=== PATIENT | male | born 1990 | race Caucasian/White ===

== ENCOUNTER 2019-02-28 10:51 | Day surgery (SDC) | payer BC ==
[2019-02-27 18:47] VITALS: BMI 21.8
[~2019-02-28] VITALS: Ht 172.7 cm; Wt 66.9 kg
[2019-02-28] VITALS (9 sets, daily range): BP systolic 93–127; BP diastolic 48–83; PULSE 60–77; RESP 16–26; Ht 172.7 cm; Wt 66.9 kg
[~2019-02-28 10:51] MED LIST: CEFAZOLIN 2 GM/50 ML (PMX) 50 ML IVPB SCH; SOD CHLORIDE 0.9% 1,000 ML IV ONE
[2019-02-28] MEDS ORDERED: ACETAMINOPHEN 500 MG TAB PO ONE (11:00)
[2019-02-28] MEDS ORDERED: PROP10TA6 PO (11:23)
[2019-02-28] MEDS ORDERED: CITA20TA11 PO (11:23)
[2019-02-28] MEDS ORDERED: PROPOFOL 40 ML ONE (12:12)
[2019-02-28] MEDS ORDERED: MIDAZOLAM 1 MG/ML 2 ML INJ ONE (12:12)
[2019-02-28] MEDS ORDERED: FENTAnyl 50 MCG/ML VIAL ONE (12:12)
[2019-02-28] MEDS ORDERED: FAMOTIDINE 20 MG INJ ONE (12:13)
[2019-02-28] MEDS ORDERED: ONDANSETRON 4 MG INJ ONE (12:16)
[2019-02-28] MEDS ORDERED: ROCURONIUM 50 MG INJ ONE (12:17)
--- NOTE | 2019-02-28 13:01 | PREAC ---
Date/Time of Note Date/Time of Note DATE: 02/28/19 TIME: 12:59 Anesthesia Eval and Record Evaluation Time Pre-Procedure Interview DATE: 02/28/19 TIME: 12:59 Age 29 Sex male NPO: 8 hrs Preoperative diagnosis pilonidal cyst Planned procedure pilonidal cyst excision Past Medical History Past Medical History: Includes (astigmatism) Psych: Depression, Anxiety Surgery & Anesthesia Issues No known issue Meds Anticoagulation: No Beta Gloria within 24 hr: No Reason Beta Gloria not given: Pt. not on B-Gloria Reported Medications Propranolol Hcl* (Propranolol Hcl*) 10 Mg Tablet, 10 MG PO DAILY, TAB 02/28/19 Citalopram Hydrobromide* (Celexa*) 20 Mg Tablet, 20 MG PO DAILY, #30 TAB 02/28/19 Current Medications Cefazolin Sodium/ Dextrose 50 ml @ 100 mls/hr PRE-OP IVPB ; Start 02/28/19 at 06:00; Stop 02/28/19 at 15:00 Sodium Chloride 1,000 ml @ 75 mls/hr [id number] ONCE IV Last administered on 02/28/19at 12:25; Admin Dose 75 MLS/HR; Start 02/28/19 at 06:00; Stop 02/28/19 at 19:19 Meds reviewed: Yes Allergies Coded Allergies: No Known Allergy (Unverified , 02/28/19) Allergies Reviewed: Yes Labs/Studies Labs Reviewed: Reviewed by anesthesiologist test: N/A Pre-procedure Exam Last vitals Vital Signs Date Temp Pulse Resp B/P (MAP) Pulse Ox O2 O2 Flow FiO2 Time Delivery Rate 02/28/19 97.6 77 16 127/83 100 Room Air 12:02 (98) Airway: Adequate mouth opening, Adequate thyromental dist Mallampati: Mallampati II Teeth: Normal Lung: Normal Heart: Normal ASA Physical Status ASA physical status: 2 Emergency: None Planned Anesthetic General/MAC: MAC Pre-operative Attestations Prior to commencing anesthesia and surgery, the patient was re-evaluated, there was verification of: *The patient's identity *The results of appropriate recent lab work and preoperative vital signs *The above evaluation not changing prior to induction *Anesthetic plan, risk benefits, alternative and complications discussed with patient/family; questions answered; patient/family understands, accepts and wishes to proceed. FRANK WELLS Feb 28, 2019 13:01
[2019-02-28] MEDS ORDERED: LIDOCAINE 1%/EPI (1:100,000) (MDV) 20 ML ONE ×2 (13:26→13:32)
[2019-02-28] MEDS ORDERED: BUPIVACAINE 0.5% (SDV) 30 ML INJ ONE ×2 (13:26→13:33)
[2019-02-28] MEDS ORDERED: morphine (1 MG/ML) 10ML SYRINGE IV PRN ×2 (13:30)
[2019-02-28] MEDS ORDERED: MEPERIDINE 25 MG INJ IV PRN (13:30)
[2019-02-28] MEDS ORDERED: ALBUTEROL 0.083% (NEB) 2.5 MG/3 ML AMP HHN PRN (13:30)
[2019-02-28] MEDS ORDERED: LABETALOL HCL 20MG INJ IV PRN (13:30)
[2019-02-28] MEDS ORDERED: HYDROmorphONE 1 MG/5 ML IV SYRINGE IV PRN ×3 (13:30)
[2019-02-28] MEDS ORDERED: OXYCODONE/ACETAMINOPHEN (5/325) TAB PO PRN ×2 (13:30)
[2019-02-28] MEDS ORDERED: ONDANSETRON 4 MG INJ IV PRN (13:30)
[2019-02-28] MEDS ORDERED: FENTAnyl 50 MCG/ML VIAL IV PRN ×2 (13:30)
[2019-02-28] MEDS ORDERED: DIPHENHYDRAMINE 50 MG INJ IV PRN (13:30)
--- NOTE | 2019-02-28 14:25 | PAC ---
Date/Time of Note Date/Time of Note DATE: 02/28/19 TIME: 14:24 Post-Anesthesia Notes Post-Anesthesia Note Last documented vital signs Vital Signs Date Temp Pulse Resp B/P (MAP) Pulse Ox O2 O2 Flow FiO2 Time Delivery Rate 02/28/19 97.6 98 77 77 16 16 127/83 100 99 Room 12:02 142 (98) 112/ Air RA 0 67 Activity: WNL Respiratory function: WNL Cardiovascular function: WNL Mental status: Baseline Pain reasonably controlled: Yes Hydration appropriate: Yes Nausea/Vomiting absent: Yes FRANK WELLS Feb 28, 2019 14:25
--- NOTE | 2019-02-28 14:41 | SIPON ---
Date/Time of Note Date/Time of Note DATE: 02/28/19 TIME: 14:38 Operative Report Preoperative Diagnosis pilonidal cyst Postoperative Diagnosis same Operation/Procedure Performed Pilonidal cyst excision Surgeon see signature line bankruptcy legal assistant none Anesthesia: MAC Estimated blood loss: 0 - 10 ml's Transfusion Required none Specimen pilonidal cyst Grafts/Implants none Complications none ASIF MILTON MD Feb 28, 2019 14:41
--- NOTE | 2019-02-28 15:28 | OPR ---
DATE OF OPERATION: 02/28/2019 PREOPERATIVE DIAGNOSIS: Pilonidal sinus. POSTOPERATIVE DIAGNOSIS: Pilonidal sinus. OPERATION: Excision of pilonidal sinus with raising flaps for closure of the wound. DESCRIPTION OF PROCEDURE: With the patient in the prone position with MAC anesthesia, the area that was to be excised was prepared with Betadine and sterile drapes applied. Prior to this, the timeout was performed and a linear incision was then made after applying sterile drapes. After applying the linea incision directly over the lesion, it was found that it was extensive on both sides with indura tion down to the fascia of the sacrum. Thereafter, the whole indurated mass was excised with sharp d issection. A counter incision had to be made on the right side of the buttock for total mobilization of this mass. Following excision, the wound was irrigated with saline. Hemostasis was maintained w ith electrocoagulation. Prior to closure, the skin, surrounding tissue and the fascia were infiltrat ed with 1% Marcaine with epinephrine. A 1% lidocaine and 0.5% Marcaine were also added. Following t his when the wound was dry, 2 grams of ACell MicroMatrix powder was then applied in the depth o f the wound. On top of this was a 10 x 15 ACell wound sheet that was placed. The wounds were then c losed in layers the midline and then the wound on the right buttock, each with a 2-0 nylon mattress s utures. Following this, light cushion dressing was applied following application of Betadine along t he wound. The patient was then taken to recovery room in satisfactory condition. Sponge and instrum ent counts were correct. Dictated By: ASIF MILTON MD OF/NTS Conf#: [id number] DID#: [id number]
== END 2019-02-28 15:50 | disposition home or self-care (01) ==
LOC: SDS 10:51
PROVIDERS: ATTEND Thoracic Surgery (Cardiothoracic Vascular Surgery)
DX: L05.91 Pilonidal cyst without abscess (principal)
CPT/HCPCS: 11772; 88304; J2250; J3010; Q4118; Q4166; Z7512; Z7610; J2405